=== PATIENT | male | born 1990 | race African-American/Black ===

== ENCOUNTER 2019-02-20 16:53 | Emergency (ER) | payer OTHER ==
--- NOTE | 2019-02-20 17:20 | ER Document Report ---
ED Medical Screen (RME) - General Chief Complaint: Post Surgical Pain Stated Complaint: POST OP PROBLEM Time Seen by Provider: 02/20/19 17:12 Primary Care Provider: MICKI NUNEZ PA [Primary Care Provider] - Follow up as needed Notes: Patient is a 28-year-old male who presents to the emergency department for left calf pain. Patient had bunion surgery on 02/20/2019. He had his follow-up visit on 02/16/2019. On 02/17/2019, the patient ended up having left calf pain. He was sent to [facility] for a venous Doppler study and he has a DVT. He was then referred to the emergency department. Patient has the disc with the diagnostic study on it. Exam: Tenderness to left calf. I have greeted and performed a rapid initial assessment of this patient. A comprehensive ED assessment and evaluation of the patient, analysis of test results and completion of medical decision making process will be conducted by an additional ED providers. TRAVEL OUTSIDE OF THE [place] IN LAST 30 DAYS: No Past Medical History - Social History Frequency of alcohol use: None Drug Abuse: None Physical Exam - Vital signs Vitals: Temp Pulse BP Pulse Ox 98.0 F 100 167/95 H 99 02/20/19 16:59 02/20/19 16:59 02/20/19 16:59 02/20/19 16:59 Course - Vital Signs Vital signs: Temp Pulse Resp BP Pulse Ox 98.0 F 100 167/95 H 99 02/20/19 16:59 02/20/19 16:59 02/20/19 16:59 02/20/19 16:59 Doctor's Discharge - Discharge Referrals: MICKI NUNEZ PA [Primary Care Provider] - Follow up as needed
[2019-02-20 17:54] LABS: ABSOLUTE BASOPHILS # (AUTO) 0.1 10^3/uL (0.0-0.2); ABSOLUTE EOSINOPHILS # (AUTO) 0.1 10^3/uL (0.0-0.6); ABSOLUTE LYMPHOCYTES (AUTO) 2.2 10^3/uL (0.5-4.7); ABSOLUTE MONOCYTES (AUTO) 0.6 10^3/uL (0.1-1.4); ABSOLUTE NEUT (AUTO) 3.9 10^3/uL (1.7-8.2); BASOPHILS % (AUTO) 0.9 % (0-2); EOSINOPHILS % (AUTO) 1.7 % (0-6); HEMATOCRIT 46.8 % (37.9-51.0); HEMOGLOBIN 16.2 g/dL (13.5-17.0); LYMPHOCYTES % (AUTO) 32.4 % (13-45); MEAN CORPUSCULAR HEMOGLOBIN 30.4 pg (27.0-33.4); MEAN CORPUSCULAR HGB CONC 34.5 g/dL (32.0-36.0); MEAN CORPUSCULAR VOLUME 88 fl (80-97); MONOCYTES % (AUTO) 8.7 % (3-13); PLATELET COUNT 221 10^3/uL (150-450); RED BLOOD COUNT 5.31 10^6/uL (4.35-5.55); RED CELL DISTRIBUTION WIDTH 13.6 % (11.5-14.0); SEGMENTED NEUTROPHILS % (AUTO) 56.3 % (42-78); TOTAL CELLS COUNTED % (AUTO) 100 %; WHITE BLOOD COUNT 6.9 10^3/uL (4.0-10.5)
[2019-02-20 17:58] LABS: INTERNATIONAL RATION (INR) 1.01; PROTHROMBIN TIME 13.3 SEC (11.4-15.4)
[2019-02-20 17:59] LABS: PARTIAL THROMBOPLASTIN TIME 30.5 SEC (23.5-35.8)
[2019-02-20] MEDS ORDERED: RIVAROXABAN 15 MG TABLET PO ONE (21:17)
[2019-02-20] MEDS ORDERED: HYDROCODONE/ACETAMINOPHEN 5-325 MG (6 TAB/ER DISP) PO PRN (21:20)
--- NOTE | 2019-02-20 21:26 | ER Document Report ---
ED General - General Chief Complaint: Post Surgical Pain Stated Complaint: POST OP PROBLEM Time Seen by Provider: 02/20/19 17:12 Primary Care Provider: MICKI NUNEZ PA [NO LOCAL MD] - Follow up as needed TRAVEL OUTSIDE OF THE [place] IN LAST 30 DAYS: No - HPI Notes: Patient is a 28-year-old gentleman, status post bunionectomy on February 10, who presents to the emergency department with left calf pain and swelling, and a diagnosis of DVT as per outside facility. Patient states he had pain and swelling over the last few days. He states his only in that leg. He denies any chest pain, shortness of breath, dyspnea with exertion, dizziness, near syncope. He has no family history of blood clots to his knowledge. - Related Data Allergies/Adverse Reactions: No Known Allergies Allergy (Unverified 02/20/19 20:01) Past Medical History - General Information source: Patient - Social History Smoking Status: Never Smoker Frequency of alcohol use: None Drug Abuse: None Family History: Reviewed & Not Pertinent Patient has suicidal ideation: No Patient has homicidal ideation: No Past Surgical History: Reports: Hx Orthopedic Surgery - right shoulder; bunionectomy Review of Systems - Review of Systems Constitutional: No symptoms reported EENT: No symptoms reported Cardiovascular: No symptoms reported Respiratory: No symptoms reported Gastrointestinal: No symptoms reported Genitourinary: No symptoms reported Musculoskeletal: See HPI Skin: No symptoms reported Hematologic/Lymphatic: No symptoms reported Neurological/Psychological: No symptoms reported Physical Exam - Vital signs Vitals: Temp Pulse BP Pulse Ox 98.0 F 100 167/95 H 99 02/20/19 16:59 02/20/19 16:59 02/20/19 16:59 02/20/19 16:59 - Notes Notes: Vital signs reviewed, please refer to chart. Head is normocephalic, atraumatic. Pupils equal round, reactive to light. Neck is supple without meningismus. Heart is regular rate and rhythm. Lungs are clear to auscultation bilaterally. Abdomen is soft, nontender, normoactive bowel sounds throughout. Extremities without cyanosis, clubbing. He does have posterior calf tenderness on the left with positive Natalio sign. Neurovascularly intact distally. Skin is warm and dry. He does have bandage in place over his surgical site on the left foot there is noted to be clean, dry, intact. Course - Re-evaluation Re-evalutation: 02/20/19 21:23 Patient presents emergency department for evaluation of a known DVT in his left leg. I did review this report from [facility] which showed a peroneal DVT. He has no signs of complete occlusion at this time. His pain is controlled. I talked to the patient about options. We will go ahead and commence treatment with Xarelto. He is given his first dose here. Also send him home with a small amount of pain medication. We talked about lifestyle modifications and medication limitations will come along with him being on Xarelto. I explained to him that [facility] be [facility] as [facility] as possible, and he voiced understanding. We also talked extensively about the symptoms of pulmonary embolus. He voiced understanding to this as well. He states he has had absolutely no chest pain, no shortness of breath, but understands that if he develops any of the symptoms he needs to return immediately to the nearest emergency department for further evaluation. - Vital Signs Vital signs: Temp Pulse Resp BP Pulse Ox 98.0 F 100 167/95 H 99 02/20/19 16:59 02/20/19 16:59 02/20/19 16:59 02/20/19 16:59 - Laboratory Result Diagrams: 02/20/19 17:24 Discharge - Discharge Clinical Impression: Acute deep vein thrombosis (DVT) of calf muscle vein of left lower extremity Condition: Stable Disposition: HOME, SELF-CARE Admitting Provider: Luda Jo (Hospitalist) Instructions: DVT Outpatient Treatment ([facility]) Additional Instructions: Please take the Xarelto as directed, starting tomorrow. [facility] soon as [facility]. Avoid dangerous activities as discussed. If you de velop chest pain, difficulty breathing, increased difficulty breathing with exertion, dizziness, passing out, or any other new or concerning symptoms, please return immediately to the emergency department for reevaluation. Referrals: MICKI NUNEZ PA [NO LOCAL MD] - Follow up as needed
[2019-02-20 22:01] VITALS: BP 153/87
== END 2019-02-20 22:01 | disposition home or self-care (01) ==
LOC: ER 16:53
DX: I82.462 Acute embolism and thrombosis of left calf muscular vein (principal); G89.18 Other acute postprocedural pain
CPT/HCPCS: 36415; 85025; 85610; 85730; 99283